=== PATIENT | female | born 1970 | race Caucasian/White ===

== ENCOUNTER → 2016-12-30 | Outpatient (CLI) | payer OTHER | LOC: ULTRA 09:10 | DX: M79.89 Other specified soft tissue disorders (principal); R60.0 Localized edema; M79.605 Pain in left leg ==

== ENCOUNTER → 2016-12-30 | Outpatient (CLI) | payer OTHER | LOC: CAT 12:36 | DX: J98.11 Atelectasis (principal); G47.62 Sleep related leg cramps; R60.0 Localized edema ==